=== PATIENT | female | born 1955 | race Two or more races ===

== ENCOUNTER → 2020-05-24 | Outpatient (CLI) | payer OTHER | END | disposition home or self-care (01) | LOC: LAB 08:11 | PROVIDERS: ATTEND Radiology Diagnostic Radiology | DX: Z00.00 Encounter for general adult medical examination without abnormal findings (principal) | CPT/HCPCS: 36415; 82565; 84520 ==

== ENCOUNTER → 2020-05-25 | Outpatient (CLI) | payer OTHER ==
[~2020-05-25] VITALS: Ht 165.1 cm; Wt 68.0 kg
[~2020-05-25] MED LIST: IOHEXOL-350 100 ML BOTTLE ONE; METOPROLOL TARTRATE 5MG/5ML VIAL IV ONE
[2020-05-25 11:17] VITALS: BP 128/59
[2020-05-25 11:30] VITALS: BP 147/68
[2020-05-25 11:46] VITALS: BP 121/77
[2020-05-25 11:49] VITALS: BP 111/66
== END | disposition home or self-care (01) ==
LOC: CT 11:07
PROVIDERS: ATTEND Radiology Diagnostic Radiology
DX: Z13.6 Encounter for screening for cardiovascular disorders (principal); I25.10 Atherosclerotic heart disease of native coronary artery without angina pectoris; J98.4 Other disorders of lung
CPT/HCPCS: 75571; J3490; Q9967; Z7610